=== PATIENT | male | born 1965 | race Hispanic/Latino ===

== ENCOUNTER → 2023-09-23 12:40 | Outpatient (REF) | payer OTHER, SELFPAY | LOC: RAD 12:40 | PROVIDERS: ATTENDING PHYSICIAN Urology; FAMILY PHYSICIAN Internal Medicine | DX: N28.1 Cyst of kidney, acquired (principal) | CPT/HCPCS: 76775 ==

== ENCOUNTER → 2024-06-10 06:18 | Day surgery (SDC) | payer OTHER, SELFPAY | LOC: GI 06:18 | PROVIDERS: ATTENDING PHYSICIAN Internal Medicine | DX: Z12.11 Encounter for screening for malignant neoplasm of colon (principal); D12.5 Benign neoplasm of sigmoid colon; K57.30 Diverticulosis of large intestine without perforation or abscess without bleeding; Z86.0100 Personal history of colon polyps, unspecified | CPT/HCPCS: 45385; 88305 ==

== ENCOUNTER 2025-01-11 06:17 | Day surgery (SDC) | payer OTHER, SELFPAY ==
[2025-01-06 13:41] VITALS: BMI 26.8
[2025-01-11 06:30] VITALS: BP 109/79
[2025-01-11 06:58] VITALS: BP 109/79
[2025-01-11 09:03] VITALS: BP 134/84
[2025-01-11 09:18] VITALS: BP 139/86
--- NOTE | 2025-01-11 09:25 | ITS.CL.IMPLP ---
[employer] - Implant Loop
Implant Loop
Procedure Report:
Date of Procedure: January 11, 2025.
Procedure: Insertable Loop Recorder Explant and Implant.
Indication: Atrial fibrillation management. Syncope.
Performing physician: Richard Gomes MD, [facility].
Implant: VaxInnate; [employer]-IQ EL+, Model# [id number]; Serial# [id number].
Explant: VaxInnate; [employer], Model# [id number]; Serial# [id number] (implanted Sep 21, 2022).
Technique: A time out was performed per protocol. The patient was prepped and draped in the usual fashion. No intravenous sedation was use. Local anesthetic was applied to the left prepectoral subcutaneous tissue. An incision was made over scar of
the prior device. Dissection was carried to the capsule. The capsule was entered. The old device was explanted. The pocket appeared normal. Using the insertion tool the new device was inserted in the same pocket as the old device. Hemostasis was
excellent. The incision was closed with 4-0 Monocryl suture. The skin was closed with steri-strips. There was no blood loss. There were no complications. No fluoroscopy was used. P waves measured 0.42 mV and P waves were easily visualized.
Final Programming: Detections: Afib, tachy at 160 bpm, lillian at 30 bpm, pause at 3 sec.
Conclusion: Uncomplicated insertable loop implant.
Recommendation: Routine post-insertable loop care. The device is MRI conditional without a waiting period and up to 3 Cesia.
cc: Jorden Cardenas MD.
[2025-01-11 09:27] VITALS: BP 137/93
== END 2025-01-11 09:44 | disposition home or self-care (01) ==
LOC: CATH 06:17
PROVIDERS: ATTENDING PHYSICIAN Internal Medicine Cardiovascular Disease; FAMILY PHYSICIAN Internal Medicine
DX: Z09 Encounter for follow-up examination after completed treatment for conditions other than malignant neoplasm (principal); I48.0 Paroxysmal atrial fibrillation; I10 Essential (primary) hypertension; R55 Syncope and collapse; Z90.5 Acquired absence of kidney; Z79.899 Other long term (current) drug therapy
CPT/HCPCS: 33285; 93005; C1764